=== PATIENT | male | born 1950 | race Caucasian/White ===

== ENCOUNTER 2019-02-03 14:48 | Inpatient (IN) | payer OTHER ==
[2019-02-03 15:56] VITALS: BMI 27.8
--- NOTE | 2019-02-03 17:37 | HP ---
COWS - Scale Resting Pulse: 0= [place] 80 or Below Sweatin=Flushed/Facial Moisture Restless Observation: 1= Difficult to Sit Still Pupil Size: 0= Normal to Room Light Bone or Joint Aches: 2= Severe Diffuse Aches Runny Nose/ Eye Tearin= Nasal Congestion GI Upset > 30mins: 1= Stomach Cramp Tremor Observation: 2= Slight Tremor Visible Yawning Observation: 1= 1-2x During Session Anxiety or Irritability: 1=Feels Anxious/Irritable Goose Flesh Skin: 3=Piloerection COWS Score: 14 CIWA Score Nausea/Vomitin Muscle Tremors: 3 Anxiety: 1-Mildly Anxious Agitation: 1-Slight > Activity Paroxysmal Sweats: 2 Orientation: 0-Oriented Tacttile Disturbances: 2-Mild Itch/Numbness/Burn Auditory Disturbances: 1-Very Mild Visual Disturbances: 1-Very Mild Sensitivity Headache: 1-Very Mild CIWA-Ar Total Score: 14 - Admission Criteria OASAS Guidelines: Admission for Medically Managed Detox: Requires at least one of the followin. CIWA greater than 12 2. Seizures within the past 24 hours 3. Delirium tremens within the past 24 hours 4. Hallucinations within the past 24 hours 5. Acute intervention needed for co occurring medical disorder 6. Acute intervention needed for co occurring psychiatric disorder 7. Severe withdrawal that cannot be handled at a lower level of care (continued vomiting, continued diarrhea, abnormal vital signs) requiring intravenous medication and/or fluids 8. Patient presents the following: CIWA greater than 12 Admission Criteria Met: Admission criteria met Admission ROS [facility] Chief Complaint: I have a problem with heroin and alcohol and I'm trying to find a way out Allergies/Adverse Reactions: Allergies Allergy/AdvReac Type Severity Reaction Status Date / Time No Known Allergies Allergy Verified 02/03/19 15:39 History of Present Illness: 68 year old male with alcohol and heroin dependence presents for detox. His last treatment was at [facility] early this year.He denies overdose or blackouts. Patient was recently hospitalized at [facility] for asthma exacerbation/pneumonia Exam Limitations: No Limitations - Ebola screening Have you traveled outside of the country in the last 21 days: No (N) Have you had contact with anyone from an Ebola affected area: No Have you been sick,other than usual withdrawal symptoms: No Do you have a fever: No - Review of Systems Constitutional: Chills, Changes in sleep EENT: reports: Blurred Vision, Hearing Loss (bilaterally), Nose Congestion Respiratory: reports: Cough, SOB with Exertion Cardiac: reports: No Symptoms Reported GI: reports: Nausea : reports: No Symptoms Reported Musculoskeletal: reports: Back Pain (due to injury), Joint Pain, Muscle Pain Integumentary: reports: Other (stasis changes in both lower extremities) Neuro: reports: Headache, Tingling Endocrine: reports: No Symptoms Reported Hematology: reports: No Symptoms Reported Psychiatric: reports: No Sypmtoms Reported, Orientated x3, Depressed (mild) Other Systems: Reviewed and Negative Patient History - Patient Medical History Hx Anemia: No Hx Asthma: Yes (Pt is on MDI) Hx Chronic Obstructive Pulmonary Disease (COPD): No Hx Cancer: Yes (skin) Hx Cardiac Disorders: No Hx Congestive Heart Failure: No Hx Hypertension: Yes (ON MEDS.) Hx Hypercholesterolemia: No Hx Pacemaker: No HX Cerebrovascular Accident: No Hx Seizures: No Hx Dementia: No Hx Diabetes: Yes (Type II DM) Hx Gastrointestinal Disorders: No Hx Liver Disease: No Hx Genitourinary Disorders: No Hx Sexually Transmitted Disorders: Yes (Pt was tx for syphillis.) Hx Renal Disease (ESRD): No Hx Thyroid Disease: No Hx Human Immunodeficiency Virus (HIV): No Hx Hepatitis C: Yes (HAD [place] ) Hx Depression: Yes (NOT CURRENTLY ON MED) Hx Suicide Attempt: No Hx Bipolar Disorder: No Hx Schizophrenia: No - Patient Surgical History Past Surgical History: Yes Hx Neurologic Surgery: No Hx Cataract Extraction: No Hx Cardiac Surgery: No Hx Lung Surgery: No Hx Breast Surgery: No Hx Breast Biopsy: No Hx Abdominal Surgery: No Hx Appendectomy: No Hx Cholecystectomy: No Hx Genitourinary Surgery: No Hx Section: No Hx Orthopedic Surgery: No Other Surgical History: right inguinal hernia repair in 1998 Anesthesia Reaction: No - PPD History Previous Implant?: Yes Documented Results: Negative w/proof Implanted On Prior R Admission?: Yes Date: 03/31/16 PPD to be Administered?: Yes - Smoking Cessation Smoking history: Former smoker Have you smoked in the past 12 months: Yes If you are a former smoker, when did you quit?: over a year ago Cigars Per Day: 0 Hx Chewing Tobacco Use: No Initiated information on smoking cessation: No - Substance & Tx. History Hx Alcohol Use: Yes Hx Substance Use: Yes Substance Use Type: Alcohol, Heroin, Opiates, Tranquilizers Hx Substance Use Treatment: Yes - Substances abused Alcohol Substance route: Oral Frequency: Daily Amount used: 4-5 12 ounces of beer Age of first use: 15 Date of last use: 02/01/19 Heroin Substance route: Inhalation Frequency: Daily Amount used: 3-6 bags Age of first use: 32 Date of last use: 02/02/19 Family Disease History - Family Disease History Family Disease History: Heart Disease: Father ([place]- AT AGE 53 ), [place]: Mother (MULTIPLE MYELOMA - ) Admission Physical Exam S - Vital Signs Vital Signs: Vital Signs - 24 hr 02/03/19 02/03/19 15:47 17:11 Temperature 98.1 F 98.1 F Pulse Rate 65 65 Respiratory 19 19 Rate Blood Pressure 103/64 103/64 - Physical General Appearance: Yes: No Apparent Distress, Nourished HEENTM: Yes: Normal ENT Inspection, Normocephalic, Nasal Congestion, Other ( bilateral hard of hearing) Respiratory: Yes: Decreased Breath Sounds (in the base), Wheezing (expiratory) Neck: Yes: No masses,lesions,Nodules, Supple Breast: Yes: Breast Exam Deferred Cardiology: Yes: Regular Rhythm, Regular Rate, S1, S2 Abdominal: Yes: Normal Bowel Sounds, Non Tender, Soft Genitourinary: Yes: Within Normal Limits Back: Yes: Normal Inspection Musculoskeletal: Yes: full range of Motion, Back pain Extremities: Yes: Normal Range of Motion, Tremors Neurological: Yes: Fully Oriented, Alert, Normal Mood/Affect, Normal Response Integumentary: Yes: Clammy Lymphatic: Yes: Within Normal Limits - Diagnostic (1) CHF (congestive heart failure) Current Visit: Yes Status: Chronic Qualifiers: Heart failure type: systolic Heart failure chronicity: chronic Qualified Code(s): I50.22 - Chronic systolic (congestive) heart failure (2) Back pain at L4-L5 level Current Visit: Yes Status: Chronic (3) Alcohol dependence with uncomplicated withdrawal Current Visit: Yes Status: Acute (4) Opioid dependence with withdrawal Current Visit: Yes Status: Acute (5) Asthma Current Visit: Yes Status: Chronic Qualifiers: Asthma severity: severe Asthma complication type: uncomplicated (6) Diabetes mellitus Current Visit: Yes Status: Chronic Qualifiers: Diabetes mellitus type: type 2 Diabetes mellitus complication status: without complication (7) HTN (hypertension) Current Visit: Yes Status: Chronic Qualifiers: Hypertension type: essential hypertension Qualified Code(s): I10 - Essential (primary) hypertension (8) Venous insufficiency of both lower extremities Current Visit: No Status: Chronic Cleared for Admission S - Detox or Rehab [facility] Level of Care: Medically Managed Detox Regimen/Protocol: Librium, Methadone Breathalyzer - Breathalyzer Breathalyzer: 0 Urine Drug Screen - Test Device Lot number: [id number] Expiration date: 10/19/20 - Control Is test valid?: Yes - Results Drug screen NEGATIVE: No Urine drug screen results: MOP-Opiates, OXY-Oxycodone, MTD-Methadone, BZO- Benzodiazepines Inpatient Rehab Admission - Rehab Decision to Admit Inpatient rehab admission?: No
[2019-02-03] MEDS ORDERED: BISMUTH SUBSALICYLATE 524 MG/30 ML UD PO PRN (17:49)
[2019-02-03] MEDS ORDERED: MAG HYDROX/AL HYDROX/SIMETH 30 ML UNIT-DOSE CUP PO PRN (17:49)
[2019-02-03] MEDS ORDERED: cloNIDine HCL 0.1 MG TABLET PO PRN (17:49)
[2019-02-03] MEDS ORDERED: NALOXONE HCL 0.4 MG/ML VIAL IVPUSH PRN (17:49)
[2019-02-03] MEDS ORDERED: clonazePAM 0.5 MG TABLET PO PRN (17:49)
[2019-02-03] MEDS ORDERED: ACETAMINOPHEN 325 MG TABLET (FP) PO PRN ×2 (17:49)
[2019-02-03] MEDS ORDERED: P-EPHED 60MG/TRIPROLIDI 2.5MG TABLET PO PRN (17:49)
[2019-02-03] MEDS ORDERED: MAGNESIUM HYDROX 2400MG/30ML ORAL SUSPENSION 30 ML CUP PO PRN (17:49)
[2019-02-03] MEDS ORDERED: MELATONIN 5 MG TABLETS PO PRN (17:49)
[2019-02-03] MEDS ORDERED: hydrOXYzine PAMOATE 50 MG CAPSULE (FP) PO PRN (17:49)
[2019-02-03] MEDS ORDERED: ONDANSETRON *ODT* 4 MG TABLET SL PRN (17:49)
[2019-02-03] MEDS ORDERED: METHADONE HCL 10 MG TABLET (FOR DETOX USE ONLY) PO ONE ×2 (17:49→23:00)
[2019-02-03] MEDS ORDERED: MAGNESIUM CITRATE 300 ML BOTTLE PO PRN (17:49)
[2019-02-03] MEDS ORDERED: METHOCARBAMOL 500 MG TABLET PO PRN (17:49)
[2019-02-03] MEDS ORDERED: chlordiazePOXIDE HCL 10 MG CAPSULE PO PRN (17:49)
[2019-02-03] MEDS ORDERED: IBUPROFEN 400 MG TABLET (FP) PO PRN (17:49)
[2019-02-03] MEDS ORDERED: chlordiazePOXIDE HCL 25 MG CAPSULE PO ONE (17:49)
[2019-02-03] MEDS ORDERED: MENTHOL/PHENOL 1 EACH UD MM PRN (17:49)
[2019-02-03] MEDS: chlordiazePOXIDE HCL 25 MG CAPSULE PO SCH (22:35)
[2019-02-03] MEDS: ALBUTEROL SO4 2.5/IPRATROPIUM 0.5 INH SOL 3 ML VIAL.NEB. NEB SCH (22:35)
[2019-02-03] MEDS: THIAMINE HCL 100 MG TABLET (FP) PO SCH (22:36)
[2019-02-03] MEDS: BUDESONIDE/FORMETEROL FUMARATE 160/4.5 mcg INHALER IH SCH (22:37)
[2019-02-04] MEDS: chlordiazePOXIDE HCL 25 MG CAPSULE PO SCH ×2 (05:10→13:24)
[2019-02-04] MEDS: metFORMIN HCL 500 MG TABLET (FP) PO SCH (06:06)
[2019-02-04] MEDS ORDERED: METHADONE HCL 5 MG TABLET (FOR DETOX USE ONLY) PO ONE (10:00)
[2019-02-04] MEDS: ALBUTEROL SO4 2.5/IPRATROPIUM 0.5 INH SOL 3 ML VIAL.NEB. NEB SCH ×3 (10:14→22:23)
[2019-02-04] MEDS: FUROSEMIDE 20 MG TABLET (FP) PO SCH (10:15)
[2019-02-04] MEDS: amLODIPine BESYLATE 10 MG TABLET (FP) PO SCH (10:15)
[2019-02-04] MEDS: PRENATAL VITAMINS W/ FOLIC ACID TABLET (FP) PO SCH (10:15)
[2019-02-04] MEDS: BUDESONIDE/FORMETEROL FUMARATE 160/4.5 mcg INHALER IH SCH ×2 (10:58→22:23)
[2019-02-04 11:08] LABS: ALBUMIN 2.8 g/dl (3.4-5.0); BILIRUBIN,TOTAL 0.5 mg/dL (0.2-1); BLOOD UREA NITROGEN 20.4 mg/dL (7-18); CALCIUM 8.4 mg/dL (8.5-10.1); CREATININE 1.1 mg/dL (0.55-1.3); POTASSIUM 3.3 mmol/L (3.5-5.1); TOT PROT 5.1 g/dl (6.4-8.2)
[2019-02-04 11:18] LABS: HEMATOCRIT 35.2 % (35.4-49); HEMOGLOBIN 11.7 GM/dL (11.7-16.9); MCH 29.1 pg (25.7-33.7); MCHC 33.3 g/dl (32.0-35.9); MEAN CELL VOLUME 87.4 fl (80-96); RBC 4.03 M/mm3 (4.00-5.60); RDW 14.5 % (11.9-15.9); WHITE BLOOD COUNT 7.3 K/mm3 (4.0-10.0)
[2019-02-04 11:30] LABS: PLATELET COUNT 120 K/MM3 (134-434)
[2019-02-04] MEDS ORDERED: POTASSIUM CHLORIDE TABS 20 MEQ TABLET.ER (FP) PO ONE (12:39)
--- NOTE | 2019-02-04 12:39 | PN ---
S CIWA - CIWA Score Nausea/Vomitin Muscle Tremors: 2 Anxiety: 1-Mildly Anxious Agitation: 1-Slight > Activity Paroxysmal Sweats: 1-Minimal Palms Moist Orientation: 0-Oriented Tacttile Disturbances: 0-None Auditory Disturbances: 0-None Visual Disturbances: 1-Very Mild Sensitivity Headache: 1-Very Mild CIWA-Ar Total Score: 9 BHS COWS - Scale Resting Pulse: 1= [place] 81-100 Sweatin= Chills/Flushing Restless Observation: 1= Difficult to Sit Still Pupil Size: 1= Pupils >than Normal Bone or Joint Aches: 2= Severe Diffuse Aches Runny Nose/ Eye Tearin= Nasal Congestion GI Upset > 30mins: 1= Stomach Cramp Tremor Observation of Outstretched Hands: 1= Tremor [place], Not Seen Yawning Observation: 0= None Anxiety or Irritability: 1=Feels Anxious/Irritable Goose Flesh Skin: 0=Smooth Skin COWS Score: 10 S Progress Note (SOAP) Subjective: SHAKY, ANXIOUS, SWEATS, POOR SLEEP Objective: 02/04/19 12:37 Vital Signs - 24 hr 02/03/19 02/03/19 02/03/19 15:47 17:11 21:47 Temperature 98.1 F 98.1 F 98.2 F Pulse Rate 65 65 59 L Respiratory 19 19 18 Rate Blood Pressure 103/64 103/64 108/66 02/04/19 02/04/19 02/04/19 00:44 03:39 06:43 Temperature 97.4 F L Pulse Rate 61 Respiratory 18 18 18 Rate Blood Pressure 106/64 02/04/19 09:04 Temperature 97.1 F L Pulse Rate 86 Respiratory 18 Rate Blood Pressure 126/68 Laboratory Tests 02/04/19 02/04/19 02/04/19 05:09 07:30 07:30 WBC 7.3 RBC 4.03 Hgb 11.7 Hct 35.2 L D MCV 87.4 MCH 29.1 MCHC 33.3 RDW 14.5 Plt Count 120 L MPV 9.0 D Sodium 140 Potassium 3.3 L Chloride 102 Carbon Dioxide 31 Anion Gap 7 L BUN 20.4 H Creatinine 1.1 Est GFR (CKD-EPI)AfAm 79.52 Est GFR (CKD-EPI)NonAf 68.61 POC Glucometer 119 Random Glucose 120 H Calcium 8.4 L Total Bilirubin 0.5 AST 13 L ALT 18 Alkaline Phosphatase 66 Total Protein 5.1 L Albumin 2.8 L RPR Titer 02/04/19 07:30 WBC RBC Hgb Hct MCV MCH MCHC RDW Plt Count MPV Sodium Potassium Chloride Carbon Dioxide Anion Gap BUN Creatinine Est GFR (CKD-EPI)AfAm Est GFR (CKD-EPI)NonAf POC Glucometer Random Glucose Calcium Total Bilirubin AST ALT Alkaline Phosphatase Total Protein Albumin RPR Titer Nonreactive ALERT AMBULATING ORIENTED NOTE SLIGHT DECREASE K+ Assessment: 02/04/19 12:38 OPIATE DEP ETOH DEP WITHDRAWAL HYPOKALEMIA-? SPURIOUS OR SECONDARY TO HYPERGLYCEMIA Plan: CONT DETOX PROTOCOL 1 DOSE 20MEQ K+ RECHECK POTASSIUM IN AM
--- NOTE | 2019-02-04 16:52 | EKG ---
Test Reason : Blood Pressure : / mmHG Vent. Rate : 065 BPM Atrial Rate : 065 BPM P-R Int : 174 ms QRS Dur : 096 ms QT Int : 428 ms P-R-T Axes : 075 013 -09 degrees QTc Int : 445 ms NORMAL SINUS RHYTHM NONSPECIFIC T WAVE ABNORMALITY ABNORMAL ECG NO PREVIOUS ECGS AVAILABLE Confirmed by MD RUBY, VIKY ([id number]) on 02/04/2019 4:51:40 PM Referred By: BRITT Confirmed By:VIKY BELTRAN MD
[2019-02-04] MEDS: chlordiazePOXIDE 5 MG CAPSULE PO SCH (22:21)
[2019-02-04] MEDS: THIAMINE HCL 100 MG TABLET (FP) PO SCH (22:21)
[2019-02-05] MEDS: chlordiazePOXIDE 5 MG CAPSULE PO SCH ×2 (05:46→12:35)
[2019-02-05] MEDS: metFORMIN HCL 500 MG TABLET (FP) PO SCH (06:44)
[2019-02-05] MEDS: ALBUTEROL SO4 2.5/IPRATROPIUM 0.5 INH SOL 3 ML VIAL.NEB. NEB SCH ×4 (07:26→20:45)
[2019-02-05] MEDS ORDERED: METHADONE HCL 10 MG TABLET (FOR DETOX USE ONLY) PO ONE (10:00)
[2019-02-05] MEDS: amLODIPine BESYLATE 10 MG TABLET (FP) PO SCH (10:06)
[2019-02-05] MEDS: FUROSEMIDE 20 MG TABLET (FP) PO SCH (10:06)
[2019-02-05] MEDS: BUDESONIDE/FORMETEROL FUMARATE 160/4.5 mcg INHALER IH SCH ×2 (10:07→22:45)
[2019-02-05] MEDS: PRENATAL VITAMINS W/ FOLIC ACID TABLET (FP) PO SCH (10:07)
[2019-02-05] MEDS ORDERED: LOPERAMIDE HCL 2 MG CAPSULE PO PRN (12:41)
--- NOTE | 2019-02-05 12:50 | PN ---
[facility] CIWA - CIWA Score Nausea/Vomitin-No Nausea/No Vomiting Muscle Tremors: None Anxiety: 0-No Anxiety, at Ease Agitation: 1-Slight > Activity Paroxysmal Sweats: No Perspiration Orientation: 0-Oriented Tacttile Disturbances: 0-None Auditory Disturbances: 0-None Visual Disturbances: 0-None Headache: 0-None Present CIWA-Ar Total Score: 1 S COWS - Scale Resting Pulse: 0= [place] 80 or Below Sweatin= No chills or Flushing Restless Observation: 0= Sits Still Pupil Size: 0= Normal to Room Light Bone or Joint Aches: 0= None Runny Nose/ Eye Tearin= None GI Upset > 30mins: 2= Nausea/Diarrhea Tremor Observation of Outstretched Hands: 0= None Yawning Observation: 1= 1-2x During Session Anxiety or Irritability: 0= None Goose Flesh Skin: 0=Smooth Skin COWS Score: 3 S Progress Note (SOAP) Subjective: Diarrhea. Objective: PATIENT A & O X 3, OBSERVED AMBULATING ON UNIT UNASSISTED. IN NO ACUTE DISTRESS. 02/05/19 12:46 Vital Signs Temperature 98.5 F 02/05/19 09:28 Pulse Rate 71 02/05/19 09:28 Respiratory Rate 18 02/05/19 09:28 Blood Pressure 118/66 02/05/19 09:28 O2 Sat by Pulse Oximetry (%) Laboratory Tests 02/04/19 02/04/19 02/04/19 05:09 07:30 07:30 WBC 7.3 RBC 4.03 Hgb 11.7 Hct 35.2 L D MCV 87.4 MCH 29.1 MCHC 33.3 RDW 14.5 Plt Count 120 L MPV 9.0 D Sodium 140 Potassium 3.3 L Chloride 102 Carbon Dioxide 31 Anion Gap 7 L BUN 20.4 H Creatinine 1.1 Est GFR (CKD-EPI)AfAm 79.52 Est GFR (CKD-EPI)NonAf 68.61 POC Glucometer 119 Random Glucose 120 H Calcium 8.4 L Total Bilirubin 0.5 AST 13 L ALT 18 Alkaline Phosphatase 66 Total Protein 5.1 L Albumin 2.8 L RPR Titer 02/04/19 02/05/19 02/05/19 07:30 05:45 07:30 WBC RBC Hgb Hct MCV MCH MCHC RDW Plt Count MPV Sodium Potassium 3.9 Chloride Carbon Dioxide Anion Gap BUN Creatinine Est GFR (CKD-EPI)AfAm Est GFR (CKD-EPI)NonAf POC Glucometer 135 Random Glucose Calcium Total Bilirubin AST ALT Alkaline Phosphatase Total Protein Albumin RPR Titer Nonreactive LABS NOTED. REPEAT K LEVEL NOW NOTED; K LEVEL NOW NOTED TO BE WITHIN NORMAL RANGE. PATIENT HAS HAD LOW PLATELET LEVELS ON PREVIOUS ADMISSIONS. 02/05/19 12:47 Assessment: 02/05/19 12:46 WITHDRAWAL SYMPTOMS. 02/05/19 12:47 Plan: CONTINUE DETOX. PATIENT SCHEDULED FOR D/C TOMORROW.
[2019-02-05] MEDS ORDERED: chlordiazePOXIDE HCL 10 MG CAPSULE PO PRN (21:00)
[2019-02-05] MEDS: chlordiazePOXIDE HCL 10 MG CAPSULE PO SCH (22:46)
[2019-02-05] MEDS: THIAMINE HCL 100 MG TABLET (FP) PO SCH (22:46)
[2019-02-06] MEDS: chlordiazePOXIDE HCL 10 MG CAPSULE PO SCH (05:38)
[2019-02-06] MEDS ORDERED: METHADONE HCL 5 MG TABLET (FOR DETOX USE ONLY) PO ONE (06:00)
[2019-02-06] MEDS: metFORMIN HCL 500 MG TABLET (FP) PO SCH (06:20)
[2019-02-06 09:41] VITALS: BP 124/85; PULSE 75; TEMP 97.5
--- NOTE | 2019-02-06 16:52 | DS ---
[facility] Detox Discharge Summary Admission Date: 02/03/19 Discharge Date: 02/06/19 - History Present History: Alcohol Dependence, Opioid Dependence Additional Comments: PATIENT GOING HOME AT THIS TIME. PATIENT ADVISED TO CONSIDER LOCAL 12-STEP / NA / AA OUTPATIENT SUPPORT GROUP PROGRAMS FOR AFTERCARE. PATIENT VERBALIZED UNDERSTANDING OF RECOMMENDATION. PATIENT DECLINED OFFER OF MEDICATION PRESCRIPTION FOR HOME MEDICATION AT TIME OF DISCHARGE FROM DETOX, NOTING THAT HE CURRENTLY HAS ADEQUATE SUPPLIES OF ALL PRESCRIBED HOME MEDICATIONS AT HOME. PATIENT WAS DISCHARGED FROM DETOX UNIT IN STABLE MEDICAL CONDITION. Pertinent Past History: Asthma, History Of Congestive Heart Failure, History Of Lower Back Pain at L4- L5 level, Type II DM, HTN, Venous Insufficiency Of Bilateral Lower Extremities, History Of Skin Cancer, Depression. - Physical Exam Results Vital Signs: Vital Signs Temperature 97.5 F L 02/06/19 09:40 Pulse Rate 75 02/06/19 09:40 Respiratory Rate 18 02/06/19 09:40 Blood Pressure 124/85 02/06/19 09:40 O2 Sat by Pulse Oximetry (%) Pertinent Admission Physical Exam Findings: WITHDRAWAL SYMPTOMS. Laboratory Tests 02/04/19 02/04/19 02/04/19 05:09 07:30 07:30 WBC 7.3 RBC 4.03 Hgb 11.7 Hct 35.2 L D MCV 87.4 MCH 29.1 MCHC 33.3 RDW 14.5 Plt Count 120 L MPV 9.0 D Sodium 140 Potassium 3.3 L Chloride 102 Carbon Dioxide 31 Anion Gap 7 L BUN 20.4 H Creatinine 1.1 Est GFR (CKD-EPI)AfAm 79.52 Est GFR (CKD-EPI)NonAf 68.61 POC Glucometer 119 Random Glucose 120 H Calcium 8.4 L Total Bilirubin 0.5 AST 13 L ALT 18 Alkaline Phosphatase 66 Total Protein 5.1 L Albumin 2.8 L RPR Titer 02/04/19 02/05/19 02/05/19 07:30 05:45 07:30 WBC RBC Hgb Hct MCV MCH MCHC RDW Plt Count MPV Sodium Potassium 3.9 Chloride Carbon Dioxide Anion Gap BUN Creatinine Est GFR (CKD-EPI)AfAm Est GFR (CKD-EPI)NonAf POC Glucometer 135 Random Glucose Calcium Total Bilirubin AST ALT Alkaline Phosphatase Total Protein Albumin RPR Titer Nonreactive 02/06/19 05:36 WBC RBC Hgb Hct MCV MCH MCHC RDW Plt Count MPV Sodium Potassium Chloride Carbon Dioxide Anion Gap BUN Creatinine Est GFR (CKD-EPI)AfAm Est GFR (CKD-EPI)NonAf POC Glucometer 164 Random Glucose Calcium Total Bilirubin AST ALT Alkaline Phosphatase Total Protein Albumin RPR Titer LABS NOTED. - Treatment Hospital Course: Detox Protocol Followed, Detoxed Safely, Responded well, Discharged Condition Good Patient has Accepted a Rehab Referral to: PT ADVISED TO CONSIDER LOCAL 12-STEP/ NA/AA OUTPATIENT SUPPORT GROUP PROGRAM - Medication Discharge Medications: Ambulatory Orders Albuterol Sulfate Inhaler - [Ventolin Hfa Inhaler -] 2 inh PO Q4H PRN 07/29/15 Amlodipine Besylate [Norvasc -] 10 mg PO DAILY 07/29/15 Furosemide [Lasix -] 20 mg PO DAILY 07/29/15 metFORMIN HCL [Glucophage -] 500 mg PO DAILY 07/29/15 Atorvastatin Calcium 10 mg PO HS 10/28/15 Folic Acid - 1 mg PO DAILY 03/29/16 hydrALAZINE HCL [Apresoline -] 50 mg PO BID 03/29/16 - Diagnosis (1) Alcohol dependence with uncomplicated withdrawal Status: Acute (2) Opioid dependence with withdrawal Status: Acute (3) Asthma Status: Chronic Qualifiers: Asthma severity: unspecified severity Asthma persistence: unspecified Asthma complication type: uncomplicated Qualified Code(s): J45.909 - Unspecified asthma, uncomplicated (4) Back pain at L4-L5 level Status: Chronic (5) CHF (congestive heart failure) Status: Chronic Qualifiers: Heart failure type: systolic Heart failure chronicity: chronic Qualified Code(s): I50.22 - Chronic systolic (congestive) heart failure (6) Diabetes mellitus Status: Chronic Qualifiers: Diabetes mellitus type: type 2 Diabetes mellitus superintendent container terminal insulin use: without superintendent container terminal use Diabetes mellitus complication status: without complication Qualified Code(s): E11.9 - Type 2 diabetes mellitus without complications (7) HTN (hypertension) Status: Chronic Qualifiers: Hypertension type: essential hypertension Qualified Code(s): I10 - Essential (primary) hypertension (8) Venous insufficiency of both lower extremities Status: Chronic - AMA Did Patient Leave Against Medical Advice: No
== END 2019-02-06 09:10 | disposition home or self-care (01) | DRG 897 ==
LOC: YASAS 14:48 → Y3N 18:23
PROVIDERS: ADMIT Surgery; ATTEND Surgery
PROC: HZ2ZZZZ Detoxification Services for Substance Abuse Treatment (ICD-10-PCS; principal; 2019-02-03)
DX: F10.230 Alcohol dependence with withdrawal, uncomplicated (principal); I50.22 Chronic systolic (congestive) heart failure; F11.23 Opioid dependence with withdrawal; F32.9 Major depressive disorder, single episode, unspecified; E87.6 Hypokalemia; I87.2 Venous insufficiency (chronic) (peripheral); I11.0 Hypertensive heart disease with heart failure; E11.9 Type 2 diabetes mellitus without complications; Z79.84 Long term (current) use of oral hypoglycemic drugs; M54.5 Low back pain; B18.2 Chronic viral hepatitis C; Z86.19 Personal history of other infectious and parasitic diseases; Z85.828 Personal history of other malignant neoplasm of skin
CPT/HCPCS: 36415; 80053; 82962; 84132; 85027; 86593; 93005; 93010; 94640